=== PATIENT | male | born 1950 | race Caucasian/White ===

== ENCOUNTER 2023-03-10 05:49 | Day surgery (SDC) | payer MEDICARE ==
[2023-03-09 14:00] VITALS: BMI 40.9
[2023-03-10 06:39] LABS: #Eosinphils 0.1 thou/uL (0.0-0.7); #Monocytes 0.7 thou/uL (0.11-0.59); #Neutrophils 2.7 thou/uL (1.40-6.50); %Basophils 0.6 % (0.0-1.0); %Eosinophils 2.4 % (0.0-10.0); %Lymphocytes 33.3 % (21.0-51.0); %Monocytes 12.4 % (0.0-10.0); %Neutrophils 50.9 % (42.0-75.0); Hematocrit 42.9 % (42.0-52.0); Mean Corpuscular HGB CONC 32.6 g/dL (32.0-36.0); Mean Corpuscular Hemoglobin 31.5 pg (27.0-31.0); Mean Corpuscular Volume 96.4 fl (78.0-98.0); Mean Platelet Volume 11.8 fL (7.4-10.4); Platelet Count 205 10x3/uL (130-400); Red Blood Cell (RBC) Count 4.45 mill/uL (4.70-6.10); White Blood Cell (WBC) Count 5.3 10x3/uL (4.8-10.8)
[2023-03-10] MEDS ORDERED: Thrombin 5000 UNITS/5 ML VIAL ONE ×2 (06:41→09:32)
[2023-03-10] MEDS ORDERED: EPINEPHrine 1 MG/ML VIAL ONE (06:41)
[2023-03-10] MEDS ORDERED: Bupivacaine PF 0.5% 30 ML VIAL ONE (06:41)
[2023-03-10] MEDS ORDERED: Sodium Chloride 0.9% 100 ML ONE ×2 (06:52→07:09)
[2023-03-10] MEDS ORDERED: CEFAZOLIN 2 GM VIAL ONE (06:52)
[2023-03-10] MEDS ORDERED: Dexmedetomidine 200 MCG/2 ML VIAL ONE (07:00)
[2023-03-10] MEDS ORDERED: Magnesium 5 GM/10 ML VIAL ONE (07:01)
[2023-03-10] MEDS ORDERED: fentaNYL PF 100 MCG/2 ML SYRINGE ONE ×3 (07:05→13:11)
[2023-03-10] MEDS ORDERED: PROPOFOL 20 ML ONE (07:05)
[2023-03-10] MEDS ORDERED: Rocuronium Bromide 10 MG/ML (10ML VIAL) ONE (07:05)
[2023-03-10] MEDS ORDERED: Dexamethasone 20 MG/5 ML VIAL ONE (07:05)
[2023-03-10] MEDS ORDERED: Ondansetron PF 4 MG/2 ML Vial ONE ×2 (07:05→12:05)
[2023-03-10 07:23] LABS: Anion Gap 15 mmol/L (10-20); BUN (Urea Nitrogen) 33 mg/dL (8.4-25.7); Calc. Creatinine Clearance 104 mL/min (70-130); Calcium 9.7 mg/dL (7.8-10.44); Carbon Dioxide 18 mmol/L (23-31); Chloride 108 mmol/L (98-107); Estimated GFR 59; Glucose 134 mg/dL (83-110); Potassium 5.2 mmol/L (3.5-5.1); Sodium 136 mmol/L (136-145)
[2023-03-10] MEDS ORDERED: HYDROmorphone 2 MG/ML VIAL SLOW IVP PRN ×2 (08:08→12:09)
[2023-03-10] MEDS ORDERED: Ondansetron HCl/PF 4 MG/2 ML Vial IVP PRN ×2 (08:08→12:09)
[2023-03-10] MEDS ORDERED: Promethazine HCl 25 MG/ML VIAL IM PRN ×2 (08:08→12:09)
[2023-03-10] MEDS ORDERED: ePHEDrine Sulfate 50 MG/10 ML VIAL ONE (08:25)
[2023-03-10] MEDS ORDERED: Vecuronium 10 MG VIAL ONE (10:42)
[2023-03-10] MEDS ORDERED: CEFAZOLIN 1 GM VIAL ONE (11:30)
[2023-03-10] MEDS ORDERED: PACU-Morphine 4MG/ML VIAL SLOW IVP PRN (12:09)
[2023-03-10] MEDS ORDERED: Morphine Sulfate 2 MG/ML SYRINGE SLOW IVP PRN (12:09)
[2023-03-10] MEDS ORDERED: Glycopyrrolate 0.2 MG/ML 5 ML SYRINGE ONE (12:13)
[2023-03-10] MEDS ORDERED: NEOSTIGMINE 3 MG/3 ML SYR 3 MG/3 ML SYRINGE ONE (12:13)
[2023-03-10] MEDS ORDERED: Tamsulosin HCl 0.4 MG CAP ONE (13:11)
[2023-03-10] MEDS ORDERED: HYDROmorphone 0.5 MG/0.5 ML SYRINGE ONE (13:41)
[2023-03-10] MEDS ORDERED: fentaNYL 50 mcg/mL 1 mL Vial ONE (13:52)
== END 2023-03-10 17:04 | disposition home or self-care (01) ==
LOC: SDC 05:49
PROVIDERS: ATTEND Neurological Surgery
PROC: 01NB0ZZ Release Lumbar Nerve, Open Approach (ICD-10-PCS; principal; 2023-03-10)
PROC: 0QH004Z Insertion of Internal Fixation Device into Lumbar Vertebra, Open Approach (ICD-10-PCS; 2023-03-10)
PROC: 0SB40ZZ Excision of Lumbosacral Disc, Open Approach (ICD-10-PCS; 2023-03-10)
DX: M51.16 Intervertebral disc disorders with radiculopathy, lumbar region (principal); M48.062 Spinal stenosis, lumbar region with neurogenic claudication; E78.5 Hyperlipidemia, unspecified; E11.9 Type 2 diabetes mellitus without complications; M19.90 Unspecified osteoarthritis, unspecified site; M10.9 Gout, unspecified; I11.9 Hypertensive heart disease without heart failure; Z88.5 Allergy status to narcotic agent; Z96.659 Presence of unspecified artificial knee joint; Z96.649 Presence of unspecified artificial hip joint; Z79.84 Long term (current) use of oral hypoglycemic drugs; Z79.899 Other long term (current) drug therapy
CPT/HCPCS: 20930; 20936; 22612; 22614; 22842; 63047; 63048; 80048; 85025; A4314; C1713 ×3; C1889 ×3; J0171; J3010; J0690; J1100; J1170; J2405; J2704; J3475; J3490; S0020